=== PATIENT | male | born 1990 | race Two or more races ===

== ENCOUNTER 2021-02-04 02:31 | Emergency (ER) | payer MEDICAID, OTHER ==
[~2021-02-04] VITALS: Ht 175.3 cm; Wt 120.2 kg
[2021-02-04] MEDS ORDERED: cefTRIAXone 1GM/50ML D5W 50 ML IV ONE (02:45)
[2021-02-04] MEDS ORDERED: TETANUS-DIPTH-ACEL PERTUSSIS 0.5ML SYR Tdap IM ONE (02:45)
[2021-02-04] MEDS ORDERED: IOHEXOL 350 MG/ML 100ML IJ ONE (02:57)
[2021-02-04] MEDS ORDERED: ACETAMINOPHEN 325 MG TAB PO ONE (03:00)
[2021-02-04] MEDS ORDERED: IOHEXOL 300 MG/ML 100ML BOTTLE IJ ONE (03:30)
[2021-02-04 03:35] LABS: Basophils # (auto) 0.1 10 ^3/uL (0-0.2); Basophils % (auto) 0.8 % (0.0-2.0); Eosinophils # (auto) 0 10 ^3/uL (0-0.8); Eosinophils % (auto) 0.7 % (0.0-7.0); Hematocrit 43.8 % (41.0-53.0); Hemoglobin 14.3 g/dL (13.5-17.5); Lymphocytes # (auto) 3.6 10 ^3/uL (0.4-5.4); Lymphocytes % (auto) 49.1 % (10.0-50.0); Mean Corpuscular Hgb Conc. 32.8 g/dL (32.0-36.0); Mean Corpuscular Volume 82.6 fL (80.0-100.0); Monocytes # (auto) 0.6 10 ^3/uL (0-1.3); Monocytes % (auto) 8.2 % (0.0-12.0); Neutrophils % (auto) 41.2 % (37.0-80.0); Nucleated Red Blood Cells % 0.1 %; Red Cell Distribution Width 13.8 % (11.8-14.3); White Blood Cell 7.2 10^3/uL (4.4-10.8)
[2021-02-04 03:38] LABS: Calcium 8.5 mg/dL (8.5-10.1); Potassium 3.5 mmol/L (3.5-5.1)
[2021-02-04 03:41] LABS: Albumin 4.3 g/dL (3.4-5.0); BUN/Creatinine Ratio 10.4
[2021-02-04 03:44] LABS: Bilirubin, Total 0.2 mg/dL (0.2-1.0); Total Protein 8.7 g/dL (6.4-8.2)
[2021-02-04 03:52] LABS: Amphetamine Screen, Urine NEGATIVE (NEGATIVE); Barbiturate Scree,Urine NEGATIVE (NEGATIVE); Benzodiazephine Screen, Urine NEGATIVE (NEGATIVE); Cannabinoid Screen, Urine POSITIVE (NEGATIVE); Cocaine Screen, Urine NEGATIVE (NEGATIVE); Opiate Scree,Urine NEGATIVE (NEGATIVE); Phencyclidine Screen, Urine NEGATIVE (NEGATIVE)
[2021-02-04 04:03] VITALS: BP 114/66
[2021-02-04] MEDS ORDERED: fentaNYL CITRATE 100 MCG/2 ML VL IV ONE (04:30)
[2021-02-04] MEDS ORDERED: LIDOCAINE HCL 2 % INJ 2ML MPF NEB ONE (04:45)
[2021-02-04] MEDS ORDERED: LIDOCAINE 2%HCL (LOCAL ANESTH.) INJ 20ML MDV ONE (04:55)
[2021-02-04] MEDS ORDERED: LIDOCAINE 2%HCL (LOCAL ANESTH.) INJ 10ml MDV IJ ONE (05:15)
[2021-02-04] MEDS ORDERED: ONDANSETRON HCL 4 MG/2 ML VIAL ONE (05:31)
== END 2021-02-04 06:15 | disposition home or self-care (01) ==
LOC: ER 02:31
DX: S51.812A Laceration without foreign body of left forearm, initial encounter (principal); S31.119A Laceration without foreign body of abdominal wall, unspecified quadrant without penetration into peritoneal cavity, initial encounter; S51.832A Puncture wound without foreign body of left forearm, initial encounter; S91.139A Puncture wound without foreign body of unspecified toe(s) without damage to nail, initial encounter; F10.129 Alcohol abuse with intoxication, unspecified; Y08.89XA Assault by other specified means, initial encounter; Y93.89 Activity, other specified; Y92.89 Other specified places as the place of occurrence of the external cause; Y99.8 Other external cause status; Y90.8 Blood alcohol level of 240 mg/100 ml or more
CPT/HCPCS: 12005; 36415; 71260; 73090; 74177; 80053; 80307; 80320; 85025; 90471; 90715; 96365; 96375; 99285; J0696; J2405; J3010; Q9967; J2001

== ENCOUNTER 2021-02-06 16:19 | Emergency (ER) | payer MEDICAID ==
[~2021-02-06] VITALS: Ht 175.3 cm; Wt 113.4 kg
[2021-02-06 16:20] VITALS: BP 110/55
== END 2021-02-06 17:11 | disposition home or self-care (01) ==
LOC: ER 16:19
DX: S51.812D Laceration without foreign body of left forearm, subsequent encounter (principal); S21.212D Laceration without foreign body of left back wall of thorax without penetration into thoracic cavity, subsequent encounter; W45.8XXD Other foreign body or object entering through skin, subsequent encounter

== ENCOUNTER 2023-12-04 16:30 | Emergency (ER) | payer MEDICAID ==
[~2023-12-04] VITALS: Ht 175.3 cm; Wt 119.5 kg
[2023-12-04] MEDS ORDERED: IBUP-1455 PO (16:46)
[2023-12-04] MEDS ORDERED: ACE3T PO (16:46)
[2023-12-04] MEDS ORDERED: AUG875T PO (16:46)
[2023-12-04] MEDS: IBUPROFEN 800 MG TAB PO ONE (17:08)
[2023-12-04] MEDS: AMOXICILLIN/CLAVUL 875 MG TAB PO ONE (17:08)
[2023-12-04] MEDS: TETANUS-DIPTH-ACEL PERTUSSIS 0.5ML SYR Tdap IM ONE (17:09)
[2023-12-04 17:18] VITALS: BP 140/76; PULSE 79; RESP 17; TEMP 97.7; O2SAT 99
== END 2023-12-04 17:20 | disposition home or self-care (01) ==
LOC: ER 16:30
DX: K04.7 Periapical abscess without sinus (principal); Z79.1 Long term (current) use of non-steroidal anti-inflammatories (NSAID); Z79.2 Long term (current) use of antibiotics; Z79.899 Other long term (current) drug therapy
CPT/HCPCS: 90471; 90715